=== PATIENT | male | born 2000 | race Caucasian/White ===

== ENCOUNTER 2023-11-16 17:00 | Emergency (ER) | payer OTHER ==
[2023-11-16] MEDS ORDERED: LIDOCAINE 5% TOPICAL PATCH ONE (17:21)
[2023-11-16] MEDS ORDERED: IBUPROFEN 600 MG TABLET (FP) PO ONE (17:21)
[2023-11-16] MEDS ORDERED: METHOCARBAMOL 500 MG TABLET ONE (17:21)
[2023-11-16] MEDS: LIDOCAINE 5% TOPICAL PATCH TP ONE (17:31)
[2023-11-16] MEDS: IBUPROFEN 600 MG TABLET (FP) PO ONE (17:32)
[2023-11-16] MEDS: METHOCARBAMOL 500 MG TABLET PO ONE (17:35)
[2023-11-16 18:27] VITALS: BP 140/71; PULSE 76; RESP 20; TEMP 98.2; BMI 26.6
[2023-11-16] MEDS ORDERED: LIDOCAINE PATCH REMOVAL MC SCH (22:00)
== END 2023-11-16 18:55 | disposition home or self-care (01) ==
LOC: FER 17:00
DX: S93.491A Sprain of other ligament of right ankle, initial encounter (principal); M25.531 Pain in right wrist; M25.571 Pain in right ankle and joints of right foot; M54.50 Low back pain, unspecified; Y35.811A Legal intervention involving manhandling, law enforcement official injured, initial encounter
CPT/HCPCS: 73110-TC-RT-FY; 73610-TC-RT-FY; 99283-25